=== PATIENT | male | born 1975 ===

== ENCOUNTER 2018-04-24 06:57 | Day surgery (SDC) | payer OTHER ==
[~2018-04-24] VITALS: Ht 175.3 cm; Wt 82.5 kg
[~2018-04-24 06:57] MED LIST: Hydrocodone-Ap1 EA23; PROM25
== END 2018-04-24 11:35 | disposition home or self-care (01) ==
LOC: ORSCSDS 06:57
PROVIDERS: Otolaryngology
PROC: 09TL7ZZ Resection of Nasal Turbinate, Via Natural or Artificial Opening (ICD-10-PCS; principal; 2018-04-24 08:15)
PROC: 09BM0ZZ Excision of Nasal Septum, Open Approach (ICD-10-PCS; principal; 2018-04-24 08:15)
DX: J34.2 Deviated nasal septum (principal); J34.3 Hypertrophy of nasal turbinates; G47.33 Obstructive sleep apnea (adult) (pediatric); Z87.891 Personal history of nicotine dependence
CPT/HCPCS: J1100; J2250; J2405; J3010; J7120

== ENCOUNTER → 2018-11-19 | Outpatient (CLI) | payer OTHER | END | disposition home or self-care (01) | LOC: LAB SHORT 09:59 → PLD 09:59 | DX: D22.5 Melanocytic nevi of trunk (principal) | CPT/HCPCS: 88304; 88305 ==

== ENCOUNTER → 2019-01-15 | Outpatient (CLI) | payer OTHER | END | disposition home or self-care (01) | LOC: PLD 07:29 → LAB SHORT 07:29 | DX: D22.39 Melanocytic nevi of other parts of face (principal) | CPT/HCPCS: 88305 ==

== ENCOUNTER → 2019-08-19 | Outpatient (CLI) | payer OTHER ==
[2019-08-22 02:07] LABS: CHLAMYDIA TRACHOMATIS, NAA Negative (Negative); NEISSERIA GONORRHOEAE, NAA Negative (Negative)
== END | disposition home or self-care (01) ==
LOC: LAB 17:50 → LAB SHORT 17:50
PROVIDERS: Family Medicine
DX: Z11.3 Encounter for screening for infections with a predominantly sexual mode of transmission (principal)
CPT/HCPCS: 87491; 87591

== ENCOUNTER → 2020-09-07 | Outpatient (CLI) | payer OTHER | END | disposition home or self-care (01) | LOC: PLD 11:27 → LAB SHORT 11:27 | DX: D22.4 Melanocytic nevi of scalp and neck (principal) | CPT/HCPCS: 88305 ==